=== PATIENT | female | born 1945 | race Caucasian/White ===

== ENCOUNTER 2021-03-19 12:20 | Inpatient (IN) ==
[2021-03-19] MEDS ORDERED: SODIUM CHLORIDE 0.9% 500 ML IV STA (13:12)
[2021-03-19] MEDS ORDERED: ONDANSETRON 4 MG/2 ML VIAL IV STA (13:12)
[2021-03-19 13:52] LABS: Basophils % 0.3 % (0.0-0.8); Eosinophils % 0.1 % (0.00-10.9); Hematocrit 29.4 VOL% (35.7-47.0); Hemoglobin 9.8 GM/DL (12.0-16.0); Immature Granulocytes % 0.5 %; Immature Granulocytes Absolute 0.05 #; Lymphocytes # 0.9 10*3/uL (1.4-4.0); Lymphocytes % 9.2 % (21.3-54.2); Mean Corpuscular HGB Conc 33.3 GM/DL (32-36); Mean Corpuscular Volume 88.6 FL (87-102); Mean Platelet Volume 11.2 FL (9.6-12.0); Monocytes % 8.1 % (1.7-12.7); Neutrophils % 81.8 % (38.7-73.9); Platelet Count 200 T/CUMM (130-400); Red Blood Count 3.32 MC/CUMM (3.8-5.5); Red Cell Distribution Width 14.1 % (9.3-17.3); White Blood Count 9.4 T/CUMM (4-12)
[2021-03-19 14:07] LABS: Albumin 1.9 G/DL (3.4-5.0); Bilirubin,Total 0.7 MG/DL (0.20-1.00); Calcium 8.4 MG/DL (8.5-10.1); Osmolality,Calculated 275.8 MOS/KG (273-304); Potassium 3.8 MMOL/L (3.5-5.1); Total Protein 4.8 G/DL (6.4-8.2)
[2021-03-19] MEDS ORDERED: ACETAMINOPHEN 325 MG TABLET PO PRN (14:57)
[2021-03-19] MEDS ORDERED: GLUCAGON 1 MG VIAL IM PRN (14:57)
[2021-03-19] MEDS ORDERED: DEXTROSE 50% 25 GM/50 ML VIAL IV PRN (14:57)
[2021-03-19] MEDS ORDERED: DILTIAZEM CD 120 MG CAPSULE PO STA (15:30)
[2021-03-19] MEDS ORDERED: DILTIAZEM CD 120 MG CAPSULE PO SCH (15:30)
[2021-03-19] MEDS: HEPARIN 5,000 UNIT/1 ML VIAL SUBCUT SCH (15:50)
[2021-03-19] MEDS: SODIUM CHLORIDE 0.9% 1,000 ML IV SCH (17:14)
[2021-03-19] MEDS: CALCIUM ACETATE 667 MG CAPSULE PO SCH (17:23)
[2021-03-19] MEDS: DILTIAZEM CD 120 MG CAPSULE PO SCH (18:08)
[2021-03-19] MEDS ORDERED: VERAPAMIL SR 120 MG TABLET PO SCH (21:00)
[2021-03-19] MEDS ORDERED: APIXABAN 2.5 MG TABLET PO SCH (21:00)
[2021-03-19] MEDS: PANTOPRAZOLE 40 MG VIAL IV SCH (21:04)
[2021-03-19] MEDS ORDERED: diphenhydrAMINE CAP 25 MG CAPSULE PO PRN (22:27)
[2021-03-19] MEDS: FLUTICASONE 50 MCG NASAL SPRAY 16 GM BOTTLE BOTH NARES SCH (22:48)
[2021-03-19] MEDS: BENZONATATE 100 MG CAPSULE PO PRN (22:56)
[2021-03-20 04:25] LABS: Basophils % 0.4 % (0.0-0.8); Eosinophils % 0.4 % (0.00-10.9); Immature Granulocytes % 0.5 %; Immature Granulocytes Absolute 0.04 #; Lymphocytes # 1.2 10*3/uL (1.4-4.0); Lymphocytes % 15.6 % (21.3-54.2); Mean Corpuscular Volume 92.6 FL (87-102); Mean Platelet Volume 11.2 FL (9.6-12.0); Monocytes % 8.9 % (1.7-12.7); Neutrophils % 74.2 % (38.7-73.9); Platelet Count 155 T/CUMM (130-400); Red Cell Distribution Width 14.3 % (9.3-17.3); White Blood Count 7.5 T/CUMM (4-12)
[2021-03-20 04:40] LABS: Calcium 7.1 MG/DL (8.5-10.1); Osmolality,Calculated 282.3 MOS/KG (273-304); Potassium 3.3 MMOL/L (3.5-5.1)
[2021-03-20 04:51] LABS: Free T4 (Free Thyroxine) 0.93 NG/DL (0.76-1.46); Thyroid Stimulating Hormone 1.89 uIU/ml (0.358-3.74)
[2021-03-20] MEDS ORDERED: POTASSIUM CHLORIDE 20 MEQ TABLET PO ONE (07:56)
[2021-03-20] MEDS: CALCIUM ACETATE 667 MG CAPSULE PO SCH ×3 (09:25→16:29)
[2021-03-20] MEDS: DILTIAZEM CD 120 MG CAPSULE PO SCH (09:25)
[2021-03-20] MEDS: PANTOPRAZOLE 40 MG VIAL IV SCH ×2 (09:26→22:38)
[2021-03-20] MEDS: HEPARIN 5,000 UNIT/1 ML VIAL SUBCUT SCH ×2 (09:26→22:35)
[2021-03-20] MEDS ORDERED: MAGNESIUM SULF RIDER 4 GM/100 ML PREMIX IV STA (11:31)
[2021-03-20 11:58] LABS: % Iron Saturation 45.2 % (18-50); Ferritin 1877.6 ng/mL (8-252)
[2021-03-20] MEDS: SODIUM CHLORIDE 0.9% 1,000 ML IV SCH (22:34)
[2021-03-20] MEDS: BENZONATATE 100 MG CAPSULE PO PRN (22:34)
[2021-03-20] MEDS: FLUTICASONE 50 MCG NASAL SPRAY 16 GM BOTTLE BOTH NARES SCH (22:40)
[2021-03-21 05:34] LABS: Basophils % 0.4 % (0.0-0.8); Eosinophils # 0.1 10*3/uL (0.0-0.87); Eosinophils % 1.4 % (0.00-10.9); Hematocrit 25.5 VOL% (35.7-47.0); Hemoglobin 8.1 GM/DL (12.0-16.0); Immature Granulocytes % 0.7 %; Immature Granulocytes Absolute 0.06 #; Lymphocytes % 12.3 % (21.3-54.2); Mean Corpuscular HGB Conc 31.8 GM/DL (32-36); Mean Corpuscular Volume 92.7 FL (87-102); Mean Platelet Volume 10.5 FL (9.6-12.0); Monocytes % 9.9 % (1.7-12.7); Neutrophils % 75.3 % (38.7-73.9); Platelet Count 165 T/CUMM (130-400); Red Blood Count 2.75 MC/CUMM (3.8-5.5); Red Cell Distribution Width 14.6 % (9.3-17.3); White Blood Count 8.4 T/CUMM (4-12)
[2021-03-21 06:06] LABS: Calcium 7.1 MG/DL (8.5-10.1); Osmolality,Calculated 276.5 MOS/KG (273-304); Potassium 3.9 MMOL/L (3.5-5.1)
[2021-03-21] MEDS: SODIUM CHLORIDE 0.9% 1,000 ML IV SCH (09:22)
[2021-03-21] MEDS: DILTIAZEM CD 120 MG CAPSULE PO SCH (09:28)
[2021-03-21] MEDS: PANTOPRAZOLE 40 MG VIAL IV SCH ×2 (09:33→20:16)
[2021-03-21] MEDS: CALCIUM ACETATE 667 MG CAPSULE PO SCH (09:38)
[2021-03-21] MEDS: HEPARIN 5,000 UNIT/1 ML VIAL SUBCUT SCH (09:38)
[2021-03-21] MEDS: ONDANSETRON 4 MG/2 ML VIAL IV PRN (10:38)
[2021-03-21] MEDS: APIXABAN 2.5 MG TABLET PO SCH (20:16)
[2021-03-21] MEDS: FLUTICASONE 50 MCG NASAL SPRAY 16 GM BOTTLE BOTH NARES SCH (20:20)
[2021-03-22 06:27] LABS: Basophils % 0.4 % (0.0-0.8); Eosinophils # 0.1 10*3/uL (0.0-0.87); Eosinophils % 1.2 % (0.00-10.9); Hematocrit 27.2 VOL% (35.7-47.0); Hemoglobin 8.9 GM/DL (12.0-16.0); Immature Granulocytes % 1.1 %; Immature Granulocytes Absolute 0.09 #; Lymphocytes # 1.1 10*3/uL (1.4-4.0); Lymphocytes % 13.4 % (21.3-54.2); Mean Corpuscular HGB Conc 32.7 GM/DL (32-36); Mean Corpuscular Volume 91.6 FL (87-102); Mean Platelet Volume 11.5 FL (9.6-12.0); Monocytes % 7.5 % (1.7-12.7); Neutrophils % 76.4 % (38.7-73.9); Platelet Count 202 T/CUMM (130-400); Red Blood Count 2.97 MC/CUMM (3.8-5.5); Red Cell Distribution Width 14.6 % (9.3-17.3); White Blood Count 8.5 T/CUMM (4-12)
[2021-03-22 06:52] LABS: Calcium 7.8 MG/DL (8.5-10.1); Potassium 4.4 MMOL/L (3.5-5.1)
[2021-03-22] MEDS: APIXABAN 2.5 MG TABLET PO SCH ×2 (10:10→21:48)
[2021-03-22] MEDS: DILTIAZEM CD 120 MG CAPSULE PO SCH (10:10)
[2021-03-22] MEDS: PANTOPRAZOLE 40 MG VIAL IV SCH ×2 (10:16→21:48)
[2021-03-22] MEDS ORDERED: LOPERAMIDE 2 MG CAPSULE PO PRN (11:11)
[2021-03-22] MEDS: VANCOMYCIN 50 MG/ML 60 ML/BOTTLE PO SCH ×2 (14:40→17:45)
[2021-03-22] MEDS: ONDANSETRON 4 MG/2 ML VIAL IV PRN (16:46)
[2021-03-22] MEDS: BISOPROLOL 5 MG TABLET PO SCH (16:46)
[2021-03-22] MEDS: FLUTICASONE 50 MCG NASAL SPRAY 16 GM BOTTLE BOTH NARES SCH (21:49)
[2021-03-22] MEDS: BENZONATATE 100 MG CAPSULE PO PRN (21:57)
[2021-03-23] MEDS: VANCOMYCIN 50 MG/ML 60 ML/BOTTLE PO SCH ×4 (00:14→17:55)
[2021-03-23 05:06] LABS: Basophils # 0.1 10*3/uL (0.0-0.2); Basophils % 0.6 % (0.0-0.8); Eosinophils # 0.1 10*3/uL (0.0-0.87); Eosinophils % 1.5 % (0.00-10.9); Hematocrit 29.6 VOL% (35.7-47.0); Hemoglobin 9.6 GM/DL (12.0-16.0); Immature Granulocytes % 1.4 %; Immature Granulocytes Absolute 0.12 #; Lymphocytes # 1.1 10*3/uL (1.4-4.0); Lymphocytes % 12.2 % (21.3-54.2); Mean Corpuscular HGB Conc 32.4 GM/DL (32-36); Mean Corpuscular Volume 92.8 FL (87-102); Mean Platelet Volume 11.6 FL (9.6-12.0); Neutrophils % 75.3 % (38.7-73.9); Platelet Count 237 T/CUMM (130-400); Red Blood Count 3.19 MC/CUMM (3.8-5.5); Red Cell Distribution Width 14.5 % (9.3-17.3); White Blood Count 8.8 T/CUMM (4-12)
[2021-03-23 05:37] LABS: Calcium 8.2 MG/DL (8.5-10.1); Osmolality,Calculated 263.8 MOS/KG (273-304)
[2021-03-23] MEDS: DILTIAZEM CD 120 MG CAPSULE PO SCH (08:19)
[2021-03-23] MEDS: BISOPROLOL 5 MG TABLET PO SCH ×2 (08:20→16:03)
[2021-03-23] MEDS: APIXABAN 2.5 MG TABLET PO SCH ×2 (08:21→21:14)
[2021-03-23] MEDS: PANTOPRAZOLE 40 MG VIAL IV SCH (08:21)
[2021-03-23] MEDS ORDERED: TUBERCULIN SKIN TEST 0.1 ML SYRINGE INTRADERM ONE (11:13)
[2021-03-23] MEDS: BENZONATATE 100 MG CAPSULE PO PRN (21:14)
[2021-03-23] MEDS: FLUTICASONE 50 MCG NASAL SPRAY 16 GM BOTTLE BOTH NARES SCH (21:14)
[2021-03-23] MEDS: PANTOPRAZOLE 40 MG TABLET PO SCH (21:14)
[2021-03-24] MEDS: VANCOMYCIN 50 MG/ML 60 ML/BOTTLE PO SCH ×3 (01:02→11:35)
[2021-03-24 04:50] LABS: Basophils % 0.4 % (0.0-0.8); Eosinophils # 0.2 10*3/uL (0.0-0.87); Eosinophils % 1.9 % (0.00-10.9); Hematocrit 25.9 VOL% (35.7-47.0); Hemoglobin 8.2 GM/DL (12.0-16.0); Immature Granulocytes % 1.6 %; Immature Granulocytes Absolute 0.13 #; Lymphocytes # 1.4 10*3/uL (1.4-4.0); Lymphocytes % 17.8 % (21.3-54.2); Mean Corpuscular HGB Conc 31.7 GM/DL (32-36); Mean Corpuscular Volume 91.8 FL (87-102); Mean Platelet Volume 10.3 FL (9.6-12.0); Monocytes % 10.2 % (1.7-12.7); Neutrophils % 68.1 % (38.7-73.9); Platelet Count 215 T/CUMM (130-400); Red Blood Count 2.82 MC/CUMM (3.8-5.5); Red Cell Distribution Width 14.6 % (9.3-17.3)
[2021-03-24 05:19] LABS: Calcium 7.9 MG/DL (8.5-10.1); Potassium 4.6 MMOL/L (3.5-5.1)
[2021-03-24] MEDS ORDERED: EPOETIN ALFA-EPBX 10,000 UNIT/ML VIAL IV PRN (08:53)
[2021-03-24 09:04] VITALS: BP 131/65
[2021-03-24] MEDS: DILTIAZEM CD 120 MG CAPSULE PO SCH (10:20)
[2021-03-24] MEDS: PANTOPRAZOLE 40 MG TABLET PO SCH (10:20)
[2021-03-24] MEDS: APIXABAN 2.5 MG TABLET PO SCH (10:20)
[2021-03-24] MEDS: BISOPROLOL 5 MG TABLET PO SCH (10:21)
== END 2021-03-24 12:17 | disposition home health service (06) | DRG 371 ==
LOC: N.ED 12:20 → N.EDINP 14:57 → SUATTDRO 14:57 → N.TELES 16:48
PROVIDERS: ADMIT Internal Medicine; ATTEND Internal Medicine

== ENCOUNTER 2021-03-29 17:39 | Observation (INO) ==
[2021-03-29] MEDS ORDERED: ONDANSETRON 4 MG/2 ML VIAL IV STA (18:49)
[2021-03-29] MEDS ORDERED: PANTOPRAZOLE 40 MG VIAL IV STA (18:49)
[2021-03-29 19:00] LABS: Basophils % 0.4 % (0.0-0.8); Eosinophils # 0.1 10*3/uL (0.0-0.87); Eosinophils % 0.7 % (0.00-10.9); Hematocrit 26.8 VOL% (35.7-47.0); Hemoglobin 8.8 GM/DL (12.0-16.0); Immature Granulocytes % 1.5 %; Immature Granulocytes Absolute 0.14 #; Lymphocytes # 1.6 10*3/uL (1.4-4.0); Lymphocytes % 17.1 % (21.3-54.2); Mean Corpuscular HGB Conc 32.8 GM/DL (32-36); Mean Corpuscular Volume 89.9 FL (87-102); Monocytes % 8.5 % (1.7-12.7); Neutrophils % 71.8 % (38.7-73.9); Platelet Count 292 T/CUMM (130-400); Red Blood Count 2.98 MC/CUMM (3.8-5.5); Red Cell Distribution Width 14.4 % (9.3-17.3); White Blood Count 9.5 T/CUMM (4-12)
[2021-03-29 19:06] LABS: Albumin 1.8 G/DL (3.4-5.0); Bilirubin,Total 0.6 MG/DL (0.20-1.00); Calcium 8.3 MG/DL (8.5-10.1); Osmolality,Calculated 278.4 MOS/KG (273-304); Potassium 3.7 MMOL/L (3.5-5.1); Total Protein 4.7 G/DL (6.4-8.2)
[2021-03-29] MEDS ORDERED: DEXTROSE 50% 25 GM/50 ML VIAL IV PRN (20:46)
[2021-03-29] MEDS ORDERED: SIMETHICONE CHEW 125 MG TABLET PO PRN (20:46)
[2021-03-29] MEDS ORDERED: LACTULOSE 20 GM/30 ML UDCUP PO PRN (20:46)
[2021-03-29] MEDS ORDERED: ACETAMINOPHEN 325 MG TABLET PO PRN (20:46)
[2021-03-29] MEDS ORDERED: GLUCAGON 1 MG VIAL IM PRN (20:46)
[2021-03-29] MEDS ORDERED: HEPARIN 5,000 UNIT/1 ML VIAL SUBCUT SCH (21:00)
[2021-03-30] MEDS: DOCUSATE SODIUM 100 MG CAPSULE PO SCH ×3 (00:24→21:41)
[2021-03-30] MEDS ORDERED: LOPERAMIDE 2 MG CAPSULE PO PRN (01:33)
[2021-03-30 06:14] LABS: Basophils # 0.1 10*3/uL (0.0-0.2); Basophils % 0.7 % (0.0-0.8); Eosinophils # 0.1 10*3/uL (0.0-0.87); Eosinophils % 0.8 % (0.00-10.9); Hematocrit 24.6 VOL% (35.7-47.0); Immature Granulocytes % 1.7 %; Immature Granulocytes Absolute 0.13 #; Lymphocytes # 1.1 10*3/uL (1.4-4.0); Lymphocytes % 14.6 % (21.3-54.2); Mean Corpuscular HGB Conc 32.5 GM/DL (32-36); Mean Corpuscular Volume 91.4 FL (87-102); Mean Platelet Volume 10.8 FL (9.6-12.0); Monocytes % 8.6 % (1.7-12.7); Neutrophils % 73.6 % (38.7-73.9); Platelet Count 221 T/CUMM (130-400); Red Blood Count 2.69 MC/CUMM (3.8-5.5); Red Cell Distribution Width 14.4 % (9.3-17.3); White Blood Count 7.6 T/CUMM (4-12)
[2021-03-30] MEDS: VANCOMYCIN 50 MG/ML 60 ML/BOTTLE PO SCH ×3 (06:27→17:37)
[2021-03-30 06:45] LABS: Albumin 1.6 G/DL (3.4-5.0); Bilirubin,Total 0.7 MG/DL (0.20-1.00); Calcium 7.9 MG/DL (8.5-10.1); Osmolality,Calculated 272.8 MOS/KG (273-304); Potassium 3.7 MMOL/L (3.5-5.1); Total Protein 4.2 G/DL (6.4-8.2)
[2021-03-30] MEDS ORDERED: APIXABAN 2.5 MG TABLET PO SCH (09:00)
[2021-03-30] MEDS: CALCIUM ACETATE 667 MG CAPSULE PO SCH ×3 (09:08→17:37)
[2021-03-30] MEDS: FUROSEMIDE 80 MG TABLET PO SCH (09:08)
[2021-03-30] MEDS: BISOPROLOL 5 MG TABLET PO SCH ×2 (09:08→16:47)
[2021-03-30] MEDS: VERAPAMIL SR 120 MG TABLET PO SCH ×2 (09:08→21:39)
[2021-03-30] MEDS: DILTIAZEM CD 120 MG CAPSULE PO SCH (09:09)
[2021-03-30] MEDS: PANTOPRAZOLE 40 MG VIAL IV SCH (09:09)
[2021-03-30] MEDS: NON-FORMULARY MEDICATION (Vitamin B Complex Tablet) PO SCH (09:35)
[2021-03-30] MEDS: CEVIMELINE 30 MG PO SCH ×3 (09:35→23:11)
[2021-03-30] MEDS ORDERED: TUBERCULIN SKIN TEST 0.1 ML SYRINGE INTRADERM ONE ×2 (11:20→14:30)
[2021-03-30] MEDS ORDERED: SODIUM CHLORIDE 0.9% 1,000 ML IV PRN (14:39)
[2021-03-30] MEDS: amLODIPine 5 MG TABLET PO SCH (17:14)
[2021-03-30] MEDS: ONDANSETRON 4 MG/2 ML VIAL IV PRN (17:37)
[2021-03-30] MEDS: FLUTICASONE 50 MCG NASAL SPRAY 16 GM BOTTLE BOTH NARES SCH (21:40)
[2021-03-30] MEDS: BENZONATATE 100 MG CAPSULE PO SCH (21:40)
[2021-03-31] MEDS: VANCOMYCIN 50 MG/ML 60 ML/BOTTLE PO SCH ×4 (01:00→19:22)
[2021-03-31 07:41] LABS: Calcium 8.4 MG/DL (8.5-10.1); Potassium 4.5 MMOL/L (3.5-5.1)
[2021-03-31] MEDS: FUROSEMIDE 80 MG TABLET PO SCH (14:00)
[2021-03-31] MEDS: DILTIAZEM CD 120 MG CAPSULE PO SCH (14:00)
[2021-03-31] MEDS: DOCUSATE SODIUM 100 MG CAPSULE PO SCH ×2 (14:00→21:21)
[2021-03-31] MEDS: VERAPAMIL SR 120 MG TABLET PO SCH ×2 (14:01→21:20)
[2021-03-31] MEDS: CALCIUM ACETATE 667 MG CAPSULE PO SCH ×3 (14:01→18:50)
[2021-03-31] MEDS: CEVIMELINE 30 MG PO SCH ×3 (14:12→21:21)
[2021-03-31] MEDS: PANTOPRAZOLE 40 MG VIAL IV SCH (14:12)
[2021-03-31] MEDS: NON-FORMULARY MEDICATION (Vitamin B Complex Tablet) PO SCH (14:13)
[2021-03-31] MEDS: amLODIPine 5 MG TABLET PO SCH (19:26)
[2021-03-31] MEDS: BENZONATATE 100 MG CAPSULE PO SCH (21:21)
[2021-03-31] MEDS: FLUTICASONE 50 MCG NASAL SPRAY 16 GM BOTTLE BOTH NARES SCH (21:21)
[2021-03-31] MEDS: ONDANSETRON 4 MG/2 ML VIAL IV PRN (22:19)
[2021-04-01] MEDS: VANCOMYCIN 50 MG/ML 60 ML/BOTTLE PO SCH ×2 (01:42→05:46)
[2021-04-01] MEDS: FUROSEMIDE 80 MG TABLET PO SCH (10:06)
[2021-04-01] MEDS: CALCIUM ACETATE 667 MG CAPSULE PO SCH (10:06)
[2021-04-01] MEDS: PANTOPRAZOLE 40 MG VIAL IV SCH (10:08)
[2021-04-01] MEDS: VERAPAMIL SR 120 MG TABLET PO SCH (10:09)
[2021-04-01] MEDS: DOCUSATE SODIUM 100 MG CAPSULE PO SCH (10:10)
[2021-04-01] MEDS: CEVIMELINE 30 MG PO SCH (10:11)
[2021-04-01] MEDS: DILTIAZEM CD 120 MG CAPSULE PO SCH (10:12)
[2021-04-01] MEDS: NON-FORMULARY MEDICATION (Vitamin B Complex Tablet) PO SCH (10:18)
[2021-04-01] MEDS: ONDANSETRON 4 MG/2 ML VIAL IV PRN (11:50)
[2021-04-01 12:38] VITALS: BP 128/51
== END 2021-04-01 12:23 ==
LOC: EDBD → EDUNIT# → N.EDINP 17:39 → N.ED 17:39 → SUATTDRO 20:45 → N.3E 03-30 00:22
PROVIDERS: ADMIT Internal Medicine; ATTEND Internal Medicine

== ENCOUNTER 2021-05-19 16:54 | Inpatient (IN) ==
[2021-05-19] MEDS ORDERED: ONDANSETRON 4 MG/2 ML VIAL IV STA (18:42)
[2021-05-19] MEDS ORDERED: SODIUM CHLORIDE 0.9% 500 ML IV STA (18:42)
[2021-05-19] MEDS ORDERED: PIPERACILLIN/TAZOBACTAM 3,375 MG in SODIUM CHLORIDE 0.9% 100 ML IV STA (19:41)
[2021-05-19 19:56] LABS: Basophils % 0.4 % (0.0-0.8); Eosinophils % 0.2 % (0.00-10.9); Hematocrit 33.4 VOL% (35.7-47.0); Hemoglobin 11.1 GM/DL (12.0-16.0); Immature Granulocytes % 0.5 %; Immature Granulocytes Absolute 0.04 #; Lymphocytes # 1.1 10*3/uL (1.4-4.0); Lymphocytes % 12.7 % (21.3-54.2); Mean Corpuscular HGB Conc 33.2 GM/DL (32-36); Mean Corpuscular Volume 89.1 FL (87-102); Mean Platelet Volume 11.8 FL (9.6-12.0); Monocytes % 7.6 % (1.7-12.7); Neutrophils % 78.6 % (38.7-73.9); Platelet Count 215 T/CUMM (130-400); Red Blood Count 3.75 MC/CUMM (3.8-5.5); Red Cell Distribution Width 15.9 % (9.3-17.3); White Blood Count 8.6 T/CUMM (4-12)
[2021-05-19 20:09] LABS: INR 1.1; PT Patient Result 12.3 SECS (10.5-12.0)
[2021-05-19 20:21] LABS: Alanine Aminotransferase 24 U/L (13-56); Albumin 1.6 G/DL (3.4-5.0); Alkaline Phosphatase 153 U/L (45-117); Aspartate Amino Transferase 29 U/L (0-37); Blood Urea Nitrogen 15 MG/DL (7-18); Calcium 8.3 MG/DL (8.5-10.1); Carbon Dioxide 35 MMOL/L (21-32); Estimated Glom Filtration Rate 14 ML/MIN; Glucose 87 MG/DL (74-106); Osmolality,Calculated 272.8 MOS/KG (273-304); Potassium 3.4 MMOL/L (3.5-5.1); Sodium 137 MMOL/L (136-145); Total Protein 4.5 G/DL (6.4-8.2)
[2021-05-19] MEDS ORDERED: GLUCAGON 1 MG VIAL IM PRN (21:32)
[2021-05-19] MEDS ORDERED: ACETAMINOPHEN 325 MG TABLET PO PRN (21:32)
[2021-05-19] MEDS ORDERED: DEXTROSE 50% 25 GM/50 ML SYRINGE IV PRN (21:32)
[2021-05-19] MEDS ORDERED: METOPROLOL TARTRATE 5 MG/5 ML VIAL IV STA (21:50)
[2021-05-19] MEDS: PANTOPRAZOLE 40 MG VIAL IV SCH (22:33)
[2021-05-19] MEDS: DILTIAZEM INJ 100 MG in SODIUM CHLORIDE 0.9% 100 ML IV SCH (23:19)
[2021-05-20] MEDS: ALBUTEROL/IPRATROPIUM 3 ML NEB RESP TX SCH ×4 (02:45→19:10)
[2021-05-20 06:20] LABS: Basophils % 0.6 % (0.0-0.8); Eosinophils # 0.1 10*3/uL (0.0-0.87); Eosinophils % 1.1 % (0.00-10.9); Hemoglobin 10.9 GM/DL (12.0-16.0); Immature Granulocytes % 0.5 %; Immature Granulocytes Absolute 0.03 #; Lymphocytes # 1.5 10*3/uL (1.4-4.0); Lymphocytes % 23.1 % (21.3-54.2); Mean Corpuscular HGB Conc 34.1 GM/DL (32-36); Mean Corpuscular Volume 86.7 FL (87-102); Mean Platelet Volume 12.6 FL (9.6-12.0); Neutrophils % 62.7 % (38.7-73.9); Platelet Count 150 T/CUMM (130-400); Red Blood Count 3.69 MC/CUMM (3.8-5.5); Red Cell Distribution Width 15.9 % (9.3-17.3); White Blood Count 6.7 T/CUMM (4-12)
[2021-05-20 08:20] LABS: Albumin 1.4 G/DL (3.4-5.0); Bilirubin,Total 0.6 MG/DL (0.20-1.00); Calcium 8.1 MG/DL (8.5-10.1); Osmolality,Calculated 284.1 MOS/KG (273-304); Potassium 3.4 MMOL/L (3.5-5.1)
[2021-05-20] MEDS ORDERED: VANCOMYCIN INJ 1,250 MG in SODIUM CHLORIDE 0.9% 250 ML IV ONE (09:00)
[2021-05-20] MEDS ORDERED: SODIUM CHLORIDE 0.9% 1,000 ML IV PRN (09:27)
[2021-05-20] MEDS: PANTOPRAZOLE 40 MG VIAL IV SCH ×2 (09:32→20:53)
[2021-05-20] MEDS: PIPERACILLIN/TAZOBACTAM 3,375 MG in SODIUM CHLORIDE 0.9% 100 ML IV SCH ×2 (09:57→20:58)
[2021-05-20] MEDS ORDERED: MAGNESIUM SULF RIDER 2 GM/50 ML PREMIX IV ONE (13:58)
[2021-05-20] MEDS: DILTIAZEM 30 MG TABLET PO SCH ×3 (18:05→23:56)
[2021-05-20] MEDS: ASCORBIC ACID 500 MG TABLET PO SCH (20:50)
[2021-05-21] MEDS: ALBUTEROL/IPRATROPIUM 3 ML NEB RESP TX SCH ×4 (01:32→20:20)
[2021-05-21 04:37] LABS: Basophils % 0.6 % (0.0-0.8); Eosinophils # 0.1 10*3/uL (0.0-0.87); Hematocrit 27.1 VOL% (35.7-47.0); Hemoglobin 9.1 GM/DL (12.0-16.0); Immature Granulocytes % 0.4 %; Immature Granulocytes Absolute 0.02 #; Mean Corpuscular HGB Conc 33.6 GM/DL (32-36); Mean Corpuscular Volume 90.3 FL (87-102); Mean Platelet Volume 11.6 FL (9.6-12.0); Monocytes % 11.5 % (1.7-12.7); Neutrophils % 65.5 % (38.7-73.9); Platelet Count 179 T/CUMM (130-400); Red Cell Distribution Width 16.3 % (9.3-17.3); White Blood Count 5.1 T/CUMM (4-12)
[2021-05-21 04:45] LABS: Calcium 7.8 MG/DL (8.5-10.1); Osmolality,Calculated 276.5 MOS/KG (273-304); Potassium 3.2 MMOL/L (3.5-5.1)
[2021-05-21] MEDS: DILTIAZEM 30 MG TABLET PO SCH (06:23)
[2021-05-21] MEDS ORDERED: POTASSIUM CHLORIDE 20 MEQ TABLET PO ONE ×2 (07:54→08:00)
[2021-05-21] MEDS ORDERED: DIGOXIN 0.5 MG/2 ML AMP IV ONE (07:56)
[2021-05-21] MEDS: DILTIAZEM INJ 100 MG in SODIUM CHLORIDE 0.9% 100 ML IV SCH (08:21)
[2021-05-21] MEDS: PANTOPRAZOLE 40 MG VIAL IV SCH ×2 (09:00→20:13)
[2021-05-21] MEDS: CALCIUM ACETATE 667 MG CAPSULE PO SCH (09:01)
[2021-05-21] MEDS: ASCORBIC ACID 500 MG TABLET PO SCH ×3 (09:01→20:14)
[2021-05-21] MEDS: DILTIAZEM CD 120 MG CAPSULE PO SCH (09:01)
[2021-05-21] MEDS: VERAPAMIL SR 120 MG TABLET PO SCH ×3 (09:01→20:13)
[2021-05-21] MEDS: PIPERACILLIN/TAZOBACTAM 3,375 MG in SODIUM CHLORIDE 0.9% 100 ML IV SCH ×2 (09:01→20:27)
[2021-05-21] MEDS ORDERED: SALIVA SUBSTITUTE SPRAY 60 ML CAN SWISH/SPIT PRN (12:33)
[2021-05-21] MEDS ORDERED: CEVIMELINE 30 MG PO SCH (15:00)
[2021-05-21] MEDS ORDERED: EPOETIN ALFA-EPBX 2,000 UNIT/ML VIAL IV PRN (15:23)
[2021-05-21] MEDS ORDERED: VANCOMYCIN INJ 500 MG in SODIUM CHLORIDE 0.9% 100 ML IV PRN (17:00)
[2021-05-21] MEDS: BENZONATATE 100 MG CAPSULE PO SCH ×2 (20:11→20:13)
[2021-05-21] MEDS: CEVIMELINE 30 MG PO SCH (20:11)
[2021-05-21] MEDS: FLUTICASONE 50 MCG NASAL SPRAY 16 GM BOTTLE BOTH NARES SCH (20:11)
[2021-05-21] MEDS ORDERED: VANCOMYCIN INJ 500 MG in SODIUM CHLORIDE 0.9% 100 ML IV ONE (21:00)
[2021-05-22] MEDS: ALBUTEROL/IPRATROPIUM 3 ML NEB RESP TX SCH ×4 (02:10→21:06)
[2021-05-22 05:51] LABS: Basophils % 0.6 % (0.0-0.8); Eosinophils # 0.2 10*3/uL (0.0-0.87); Eosinophils % 2.9 % (0.00-10.9); Hematocrit 26.1 VOL% (35.7-47.0); Hemoglobin 8.5 GM/DL (12.0-16.0); Immature Granulocytes % 0.6 %; Immature Granulocytes Absolute 0.03 #; Lymphocytes # 0.9 10*3/uL (1.4-4.0); Lymphocytes % 18.2 % (21.3-54.2); Mean Corpuscular HGB Conc 32.6 GM/DL (32-36); Mean Corpuscular Volume 90.6 FL (87-102); Mean Platelet Volume 11.2 FL (9.6-12.0); Monocytes % 11.2 % (1.7-12.7); Neutrophils % 66.5 % (38.7-73.9); Platelet Count 159 T/CUMM (130-400); Red Blood Count 2.88 MC/CUMM (3.8-5.5); Red Cell Distribution Width 16.8 % (9.3-17.3); White Blood Count 5.2 T/CUMM (4-12)
[2021-05-22 06:14] LABS: Calcium 8.1 MG/DL (8.5-10.1); Osmolality,Calculated 278.5 MOS/KG (273-304); Potassium 3.5 MMOL/L (3.5-5.1)
[2021-05-22 06:17] LABS: % Iron Saturation 96.3 % (18-50); Ferritin 1896.7 ng/mL (8-252)
[2021-05-22] MEDS: DILTIAZEM CD 120 MG CAPSULE PO SCH (09:09)
[2021-05-22] MEDS: CALCIUM ACETATE 667 MG CAPSULE PO SCH (09:09)
[2021-05-22] MEDS: VERAPAMIL SR 120 MG TABLET PO SCH ×2 (09:09→21:12)
[2021-05-22] MEDS: ASCORBIC ACID 500 MG TABLET PO SCH ×2 (09:09→21:12)
[2021-05-22] MEDS: PIPERACILLIN/TAZOBACTAM 3,375 MG in SODIUM CHLORIDE 0.9% 100 ML IV SCH (09:10)
[2021-05-22] MEDS: PANTOPRAZOLE 40 MG VIAL IV SCH ×2 (09:10→21:19)
[2021-05-22] MEDS: CEVIMELINE 30 MG PO SCH ×2 (09:10→14:42)
[2021-05-22] MEDS: DILTIAZEM INJ 100 MG in SODIUM CHLORIDE 0.9% 100 ML IV SCH (11:21)
[2021-05-22] MEDS: BENZONATATE 100 MG CAPSULE PO SCH (21:12)
[2021-05-22] MEDS: APIXABAN 2.5 MG TABLET PO SCH (21:13)
[2021-05-23] MEDS: ALBUTEROL/IPRATROPIUM 3 ML NEB RESP TX SCH ×4 (01:55→19:03)
[2021-05-23] MEDS: FLUTICASONE 50 MCG NASAL SPRAY 16 GM BOTTLE BOTH NARES SCH ×2 (02:22→22:01)
[2021-05-23] MEDS: DILTIAZEM INJ 100 MG in SODIUM CHLORIDE 0.9% 100 ML IV SCH ×2 (02:22→23:37)
[2021-05-23] MEDS: PIPERACILLIN/TAZOBACTAM 3,375 MG in SODIUM CHLORIDE 0.9% 100 ML IV SCH ×2 (02:22→09:23)
[2021-05-23] MEDS: CEVIMELINE 30 MG PO SCH ×4 (02:22→22:04)
[2021-05-23 05:10] LABS: Basophils % 0.7 % (0.0-0.8); Eosinophils # 0.2 10*3/uL (0.0-0.87); Eosinophils % 3.8 % (0.00-10.9); Hematocrit 25.3 VOL% (35.7-47.0); Hemoglobin 8.2 GM/DL (12.0-16.0); Immature Granulocytes % 0.7 %; Immature Granulocytes Absolute 0.04 #; Lymphocytes # 0.9 10*3/uL (1.4-4.0); Lymphocytes % 15.7 % (21.3-54.2); Mean Corpuscular HGB Conc 32.4 GM/DL (32-36); Mean Platelet Volume 11.4 FL (9.6-12.0); Monocytes % 10.1 % (1.7-12.7); Platelet Count 158 T/CUMM (130-400); Red Blood Count 2.81 MC/CUMM (3.8-5.5); Red Cell Distribution Width 16.7 % (9.3-17.3); White Blood Count 5.7 T/CUMM (4-12)
[2021-05-23 05:24] LABS: Calcium 7.9 MG/DL (8.5-10.1); Osmolality,Calculated 275.8 MOS/KG (273-304); Potassium 3.8 MMOL/L (3.5-5.1)
[2021-05-23] MEDS: ONDANSETRON 4 MG/2 ML VIAL IV PRN (09:24)
[2021-05-23] MEDS: PANTOPRAZOLE 40 MG VIAL IV SCH ×2 (09:24→22:03)
[2021-05-23] MEDS: ASCORBIC ACID 500 MG TABLET PO SCH ×2 (09:31→22:02)
[2021-05-23] MEDS: DILTIAZEM CD 120 MG CAPSULE PO SCH (09:33)
[2021-05-23] MEDS: APIXABAN 2.5 MG TABLET PO SCH ×2 (09:33→22:02)
[2021-05-23] MEDS: VERAPAMIL SR 120 MG TABLET PO SCH ×2 (09:33→22:01)
[2021-05-23] MEDS: CALCIUM ACETATE 667 MG CAPSULE PO SCH (09:34)
[2021-05-23] MEDS: BENZONATATE 100 MG CAPSULE PO SCH (22:01)
[2021-05-24] MEDS: ALBUTEROL/IPRATROPIUM 3 ML NEB RESP TX SCH ×4 (01:32→20:50)
[2021-05-24 07:23] LABS: Basophils % 0.7 % (0.0-0.8); Eosinophils # 0.1 10*3/uL (0.0-0.87); Eosinophils % 2.3 % (0.00-10.9); Hematocrit 26.4 VOL% (35.7-47.0); Hemoglobin 8.6 GM/DL (12.0-16.0); Immature Granulocytes % 0.7 %; Immature Granulocytes Absolute 0.04 #; Lymphocytes # 0.9 10*3/uL (1.4-4.0); Lymphocytes % 15.2 % (21.3-54.2); Mean Corpuscular HGB Conc 32.6 GM/DL (32-36); Mean Corpuscular Volume 90.4 FL (87-102); Mean Platelet Volume 10.7 FL (9.6-12.0); Monocytes % 9.4 % (1.7-12.7); Neutrophils % 71.7 % (38.7-73.9); Platelet Count 158 T/CUMM (130-400); Red Blood Count 2.92 MC/CUMM (3.8-5.5); Red Cell Distribution Width 16.7 % (9.3-17.3); White Blood Count 6.1 T/CUMM (4-12)
[2021-05-24 07:34] LABS: Calcium 8.1 MG/DL (8.5-10.1); Osmolality,Calculated 271.8 MOS/KG (273-304); Potassium 3.4 MMOL/L (3.5-5.1)
[2021-05-24] MEDS ORDERED: POTASSIUM CHLORIDE 20 MEQ TABLET PO ONE (08:16)
[2021-05-24] MEDS: PIPERACILLIN/TAZOBACTAM 3,375 MG in SODIUM CHLORIDE 0.9% 100 ML IV SCH (10:14)
[2021-05-24] MEDS: DILTIAZEM CD 120 MG CAPSULE PO SCH (10:15)
[2021-05-24] MEDS: CALCIUM ACETATE 667 MG CAPSULE PO SCH (10:15)
[2021-05-24] MEDS: PANTOPRAZOLE 40 MG VIAL IV SCH ×2 (10:15→22:11)
[2021-05-24] MEDS: ASCORBIC ACID 500 MG TABLET PO SCH ×2 (10:15→22:06)
[2021-05-24] MEDS: APIXABAN 2.5 MG TABLET PO SCH ×2 (10:16→22:07)
[2021-05-24] MEDS: VERAPAMIL SR 120 MG TABLET PO SCH (10:16)
[2021-05-24] MEDS: CEVIMELINE 30 MG PO SCH ×3 (10:17→22:14)
[2021-05-24] MEDS ORDERED: CHOLESTYRAMINE 4 GM PACK PO ONE (18:21)
[2021-05-24] MEDS: BENZONATATE 100 MG CAPSULE PO SCH (22:05)
[2021-05-24] MEDS: METOPROLOL TARTRATE 25 MG TABLET PO SCH (22:07)
[2021-05-24] MEDS: FLUTICASONE 50 MCG NASAL SPRAY 16 GM BOTTLE BOTH NARES SCH (22:14)
[2021-05-25] MEDS: DILTIAZEM INJ 100 MG in SODIUM CHLORIDE 0.9% 100 ML IV SCH
[2021-05-25] MEDS: ALBUTEROL/IPRATROPIUM 3 ML NEB RESP TX SCH ×4 (00:16→20:04)
[2021-05-25 07:10] LABS: Basophils # 0.1 10*3/uL (0.0-0.2); Basophils % 0.7 % (0.0-0.8); Eosinophils # 0.2 10*3/uL (0.0-0.87); Eosinophils % 3.1 % (0.00-10.9); Hematocrit 27.9 VOL% (35.7-47.0); Hemoglobin 9.1 GM/DL (12.0-16.0); Immature Granulocytes % 0.7 %; Immature Granulocytes Absolute 0.05 #; Lymphocytes # 0.9 10*3/uL (1.4-4.0); Lymphocytes % 13.3 % (21.3-54.2); Mean Corpuscular HGB Conc 32.6 GM/DL (32-36); Mean Corpuscular Volume 90.9 FL (87-102); Monocytes % 9.1 % (1.7-12.7); Neutrophils % 73.1 % (38.7-73.9); Platelet Count 184 T/CUMM (130-400); Red Blood Count 3.07 MC/CUMM (3.8-5.5); Red Cell Distribution Width 16.6 % (9.3-17.3); White Blood Count 7.1 T/CUMM (4-12)
[2021-05-25 07:28] LABS: Calcium 8.2 MG/DL (8.5-10.1); Osmolality,Calculated 276.5 MOS/KG (273-304); Potassium 3.7 MMOL/L (3.5-5.1)
[2021-05-25] MEDS: DILTIAZEM CD 120 MG CAPSULE PO SCH (08:40)
[2021-05-25] MEDS: METOPROLOL TARTRATE 25 MG TABLET PO SCH ×2 (08:41→22:07)
[2021-05-25] MEDS: CALCIUM ACETATE 667 MG CAPSULE PO SCH (08:41)
[2021-05-25] MEDS: APIXABAN 2.5 MG TABLET PO SCH ×2 (08:41→22:07)
[2021-05-25] MEDS: ASCORBIC ACID 500 MG TABLET PO SCH ×2 (08:41→22:07)
[2021-05-25] MEDS: ONDANSETRON 4 MG/2 ML VIAL IV PRN (08:42)
[2021-05-25] MEDS: PANTOPRAZOLE 40 MG VIAL IV SCH ×2 (08:42→22:08)
[2021-05-25] MEDS: CEVIMELINE 30 MG PO SCH ×3 (08:43→22:08)
[2021-05-25] MEDS: BENZONATATE 100 MG CAPSULE PO SCH (22:07)
[2021-05-25] MEDS: FLUTICASONE 50 MCG NASAL SPRAY 16 GM BOTTLE BOTH NARES SCH (22:08)
[2021-05-25] MEDS: CHOLESTYRAMINE 4 GM PACK PO SCH (22:13)
[2021-05-25] MEDS: ONDANSETRON 4 MG TABLET PO SCH (22:14)
[2021-05-26 00:13] LABS: CDT Result Negative (Negative); CDT Specimen Source STOOL
[2021-05-26] MEDS: ALBUTEROL/IPRATROPIUM 3 ML NEB RESP TX SCH ×3 (01:30→12:07)
[2021-05-26 05:11] LABS: Basophils # 0.1 10*3/uL (0.0-0.2); Eosinophils # 0.2 10*3/uL (0.0-0.87); Eosinophils % 2.6 % (0.00-10.9); Hematocrit 27.9 VOL% (35.7-47.0); Immature Granulocytes Absolute 0.06 #; Lymphocytes # 1.2 10*3/uL (1.4-4.0); Lymphocytes % 18.8 % (21.3-54.2); Mean Corpuscular HGB Conc 32.3 GM/DL (32-36); Mean Corpuscular Volume 91.5 FL (87-102); Mean Platelet Volume 11.6 FL (9.6-12.0); Monocytes % 10.1 % (1.7-12.7); Neutrophils % 66.5 % (38.7-73.9); Platelet Count 178 T/CUMM (130-400); Red Blood Count 3.05 MC/CUMM (3.8-5.5); Red Cell Distribution Width 16.6 % (9.3-17.3); White Blood Count 6.1 T/CUMM (4-12)
[2021-05-26 05:37] LABS: Calcium 8.1 MG/DL (8.5-10.1); Osmolality,Calculated 279.3 MOS/KG (273-304); Potassium 3.4 MMOL/L (3.5-5.1)
[2021-05-26] MEDS ORDERED: METOPROLOL TARTRATE 50 MG TABLET PO SCH (09:30)
[2021-05-26] MEDS: DILTIAZEM CD 120 MG CAPSULE PO SCH (10:28)
[2021-05-26] MEDS: APIXABAN 2.5 MG TABLET PO SCH (10:28)
[2021-05-26] MEDS: ASCORBIC ACID 500 MG TABLET PO SCH (10:29)
[2021-05-26] MEDS: CALCIUM ACETATE 667 MG CAPSULE PO SCH (10:29)
[2021-05-26] MEDS: ONDANSETRON 4 MG TABLET PO SCH (10:29)
[2021-05-26] MEDS: CEVIMELINE 30 MG PO SCH ×2 (10:29→15:46)
[2021-05-26] MEDS: CHOLESTYRAMINE 4 GM PACK PO SCH (10:30)
[2021-05-26] MEDS: PANTOPRAZOLE 40 MG VIAL IV SCH (10:48)
[2021-05-26] MEDS: METOPROLOL TARTRATE 25 MG TABLET PO SCH (11:15)
[2021-05-26 12:14] VITALS: BP 124/64
[2021-05-26] MEDS ORDERED: ONDANSETRON 4 MG TABLET PO ONE (14:17)
== END 2021-05-26 15:59 | DRG 193 ==
LOC: N.ED 16:54 → N.EDINP 21:32 → N.TELEN 23:37
PROVIDERS: ADMIT Hospitalist; ATTEND Hospitalist